=== PATIENT | female | born 1985 | race African-American/Black ===

== ENCOUNTER 2016-12-10 13:09 | Emergency (ER) | payer SELFPAY ==
[~2016-12-10] VITALS: Ht 170.2 cm; Wt 98.5 kg
[2016-12-10 13:29] VITALS: Ht 170.2 cm; Wt 98.5 kg
[2016-12-10] MEDS ORDERED: SOD CHLORIDE 0.9% 1,000 ML IV STA (14:03)
[2016-12-10] MEDS ORDERED: METOCLOPRAMIDE 10 MG INJ IV ONE (14:30)
[2016-12-10 14:36] LABS: ADD UMIC YES; URINE BILIRUBIN (Dip) NEGATIVE (NEGATIVE); URINE BLOOD (Dip) NEGATIVE (NEGATIVE); URINE COLOR LT. YELLOW (YELLOW); URINE GLUCOSE (Dip) NEGATIVE (NEGATIVE); URINE KETONES (Dip) NEGATIVE (NEGATIVE); URINE LEUKOCYTE ESTERASE (Dip) NEGATIVE (NEGATIVE); URINE NITRITE (Dip) NEGATIVE (NEGATIVE); URINE TOTAL PROTEIN (Dip) TRACE (NEGATIVE); URINE UROBILINOGEN (Dip) 1.0 E.U./dL (0.1-1.0)
[2016-12-10 14:54] LABS: BACTERIA,URINE FEW; MUCUS,URINE FEW; URINE RBCS NONE SEEN /HPF (0)
[2016-12-10 15:07] LABS: ADD SCAN DIFF NO
[2016-12-10 15:11] LABS: BASOPHILS % 0.2 % (0.0-2.0); EOSINOPHILS # 0.2 10^3/ul (0.0-0.5); EOSINOPHILS % 3.2 % (0.0-7.0); HEMATOCRIT 38.2 % (37.0-47.0); HEMOGLOBIN 12.7 g/dl (12.0-16.0); LYMPHOCYTES # 1.5 10^3/ul (0.8-2.9); LYMPHOCYTES % 30.9 % (15.0-51.0); MEAN CORPUSCULAR HEMOGLOBIN 29.3 pg (29.0-33.0); MEAN CORPUSCULAR HGB CONC 33.2 g/dl (32.0-37.0); MEAN PLATELET VOLUME 9.5 fl (7.4-10.4); MONOCYTE # 0.3 10^3/ul (0.3-0.9); MONOCYTES % 6.8 % (0.0-11.0); NEUTROPHIL # 2.9 10^3/ul (1.6-7.5); NEUTROPHILS % 58.7 % (39.0-77.0); PLATELET COUNT 340 10^3/UL (140-415); RED BLOOD COUNT 4.34 10^6/ul (4.20-5.40); RED CELL DISTRIBUTION WIDTH 11.7 % (11.5-14.5)
--- NOTE | 2016-12-10 15:48 | RADRPT ---
PROCEDURE: US OB. CLINICAL INDICATION: Vaginal bleeding TECHNIQUE: Transabdominal and transvaginal views of the pelvis are available for review. COMPARISON: No prior studies are available for comparison. FINDINGS: There is a twin intrauterine gestation with the crown-rump length measuring 0.7 and 0.5 cm, correspo nding to a gestational age of 6 weeks and 2-3 days. The heart rate is noted at 116 and 118 bpm. The ovaries are normal in size and echogenicity. Normal Doppler flow is identified in both ovaries. The right ovary measures 2.7 x 1.6 cm. The left ovary measures 3.2 x 1.8 cm. There is a complex left ovarian cyst measuring 1.2 cm. There is no free fluid. RPTAT: AA IMPRESSION: Twin live intrauterine with an estimated gestational age of 6 weeks and 2-3 days, based on ultrasound measurements. .Nicholas Pelletier MD, MD Date Time Electronically viewed and signed by .Nicholas Pelletier MD, on 12/10/2016 15:48 .S/
--- NOTE | 2016-12-10 17:57 | ERD ---
ER Documentation Chief Complaint Date/Time DATE: 12/10/16 TIME: 17:55 Chief Complaint vomiting and vag spotting x 3 days HPI 31-year-old female patient who is a G2 3 presents to the ED complaining of vaginal spotting and vomiting in the last 3 days. States that she has had 6 episodes of nonbilious nonbloody vomiting. States that she has a prescription for zofran for her nausea and vomiting prescribed by her NON PROFIT DIRECTOR. Reports that her NON PROFIT DIRECTOR is Milagros Fernandes in [place] and is here in [place] to visit her son. Reports that she only has vaginal spotting when she wipes. Denies any fever, chills, abdominal pain, diarrhea, constipation, vaginal discharge, chest pain, shortness of breath. Reports that her last menses was sometime in the beginning of October and the last week of September but is unsure of the exact date. States that she is currently taking amoxicillin for her sinusitis. ROS All systems reviewed and are negative except as per history of present illness. PMhx/Soc History of Surgery: No Anesthesia Reaction: No Hx Neurological Disorder: No Hx Respiratory Disorders: No Hx Cardiac Disorders: No Hx Psychiatric Problems: No Hx Miscellaneous Medical Probl: No Hx Alcohol Use: No Hx Substance Use: No Hx Tobacco Use: No Physical Exam Vitals Vital Signs Date Time Temp Pulse Resp B/P Pulse Ox O2 Delivery O2 Flow Rate FiO2 12/10/16 13:29 99.5 84 18 123/68 100 Physical Exam Const: Jal-mld-[id number], well-nourished. In no acute distress. Head: Atraumatic, normocephalic Eyes: Normal Conjunctiva without injection. No purulent discharge. ENT: Normal external ear, nose. Moist oropharynx without tonsillar exudates. Non -erythematous pharynx. Uvula midline. No drooling. No trismus. Neck: No cervical midline tenderness. Full range of motion. No meningismus. No cervical lymphadenopathy. No JVD. Resp: Clear to auscultation bilaterally. No wheezing, rhonchi, rales, or crackles. No accessory muscle use. No retractions. Cardio: Regular rate and rhythm. No murmurs, rubs or gallops. Abd: Soft, nontender, non distended. Normal bowel sounds. No palpable masses. No rebound tenderness. No guarding. Negative McBurney's point. Negative psoas sign. Negative obturator sign. Skin: No petechiae or rashes Back: No midline tenderness. No CVA tenderness. Ext: No cyanosis, or edema. Neur: Awake and alert. Normal gait. Normal coordination. Psych: Normal Mood and Affect Result Diagram: 12/10/16 1420 Results 24 hrs Laboratory Tests Test 12/10/16 14:13 12/10/16 14:20 Urine Color LT. YELLOW Urine Clarity CLEAR Urine pH 8.0 Urine Specific [place] 1.015 Urine Ketones NEGATIVE Urine Nitrite NEGATIVE Urine Bilirubin NEGATIVE Urine Urobilinogen 1.0 E.U./dL Urine Leukocyte Esterase NEGATIVE Urine Microscopic RBC NONE SEEN/HPF Urine Microscopic WBC 2-5/HPF Urine Epithelial Cells FEW Urine Bacteria FEW Urine Mucus FEW Urine Hemoglobin NEGATIVE Urine Glucose NEGATIVE% Urine Total Protein TRACE White Blood Count 5.010^3/ul Red Blood Count 4.3410^6/ul Hemoglobin 12.7g/dl Hematocrit 38.2% Mean Corpuscular Volume 88.0fl Mean Corpuscular Hemoglobin 29.3pg Mean Corpuscular Hemoglobin Concent 33.2g/dl Red Cell Distribution Width 11.7% Platelet Count 68734^3/UL Mean Platelet Volume 9.5fl Neutrophils % 58.7% Lymphocytes % 30.9% Monocytes % 6.8% Eosinophils % 3.2% Basophils % 0.2% Nucleated Red Blood Cells % 0.0/100WBC Neutrophils # 2.910^3/ul Lymphocytes # 1.510^3/ul Monocytes # 0.310^3/ul Eosinophils # 0.210^3/ul Basophils # 0.010^3/ul Nucleated Red Blood Cells # 0.010^3/ul Beta HCG, Quantitative 13148.0mIU/ml Current Medications Medications (Trade) Dose Ordered Sig/Linda Route PRN Reason Start Time Stop Time Status Last Admin Dose Admin Sodium Chloride (NS) 1,000 ml @ 1,000 mls/hr Q1H STAT IV 12/10/16 14:03 12/10/16 15:02 DC 12/10/16 14:26 Metoclopramide HCl (Reglan) 10 mg ONCE ONCE IV 12/10/16 14:30 12/10/16 14:31 DC 12/10/16 14:25 Procedures/MDM This is a 31-year-old female patient who is a A1 presents the ED complaining of vomiting and vaginal spotting. Patient is afebrile and nontoxic- appearing. An ultrasound, beta-hCG, CBC, type and RH, UA was ordered to evaluate patient. CBC: No evidence of severe infection or anemia Urine: No elevation in nitrites, leukocyte esterase, hematuria. No evidence of UTI Rh: O positive No indication for Rhogam at this time. beta Hc,214 PROCEDURE: US OB. CLINICAL INDICATION: Vaginal bleeding TECHNIQUE: Transabdominal and transvaginal views of the pelvis are available for review. COMPARISON: No prior studies are available for comparison. FINDINGS: There is a twin intrauterine gestation with the crown-rump length measuring 0.7 and 0.5 cm, corresponding to a gestational age of 6 weeks and 2-3 days. The heart rate is noted at 116 and 118 bpm. The ovaries are normal in size and echogenicity. Normal Doppler flow is identified in both ovaries. The right ovary measures 2.7 x 1.6 cm. The left ovary measures 3.2 x 1.8 cm. There is a complex left ovarian cyst measuring 1.2 cm. There is no free fluid. RPTAT: AA IMPRESSION: Twin live intrauterine with an estimated gestational age of 6 weeks and 2-3 days, based on ultrasound measurements. Patient's bleeding symptoms have stabilized while in the department. Patient has twin live intrauterine , 6 weeks 2-3 days noted on ultrasound. Low suspicion for dehydration, symptomatic anemia, ectopic , sepsis, PID, appendicitis, ovarian torsion, tubo-ovarian abscess, surgical abdomen, or other emergent conditions. Patient was educated that there is a risk for threatened . Patient to follow up with NON PROFIT DIRECTOR in 2 days for further evaluation and treatment. Patient is to return sooner to the ED for any worsening symptoms. Patient's questions were answered. Patient understood and agreed with discharge plan. Departure Diagnosis: Primary Impression: Vaginal spotting Additional Impression: Hyperemesis arising during Condition: Stable Patient Instructions: Hyperemesis Gravidarum, Possible Miscarriage (Threatened ) Referrals: [facility] YOU HAVE RECEIVED A MEDICAL SCREENING EXAM AND THE RESULTS INDICATE THAT YOU DO NOT HAVE A CONDITION THAT REQUIRES URGENT TREATMENT IN THE EMERGENCY DEPARTMENT. FURTHER EVALUATION AND TREATMENT OF YOUR CONDITION CAN WAIT UNTIL YOU ARE SEEN IN YOUR DOCTORS OFFICE WITHIN THE NEXT 1-2 DAYS. IT IS YOUR RESPONSIBILITY TO MAKE AN APPOINTMENT FOR FOLOW-UP CARE. IF YOU HAVE A PRIMARY DOCTOR --you should call your primary doctor and schedule an appointment IF YOU DO NOT HAVE A PRIMARY DOCTOR YOU CAN CALL OUR PHYSICIAN REFERRAL HOTLINE AT IF YOU CAN NOT AFFORD TO SEE A PHYSICIAN YOU CAN CHOSE FROM THE FOLLOWING [facility] CL[facility]ICS [facility] [address] [facility] [address] [facility] [address] [facility] [address] [facility] [address] [facility]. [facility]. [address] [facility]. [facility] YOU HAVE RECEIVED A MEDICAL SCREENING EXAM AND THE RESULTS INDICATE THAT YOU DO NOT HAVE A CONDITION THAT REQUIRES URGENT TREATMENT IN THE EMERGENCY DEPARTMENT. FURTHER EVALUATION AND TREATMENT OF YOUR CONDITION CAN WAIT UNTIL YOU ARE SEEN IN YOUR DOCTORS OFFICE WITHIN THE NEXT 1-2 DAYS. IT IS YOUR RESPONSIBILITY TO MAKE AN APPOINTMENT FOR FOLOW-UP CARE. IF YOU HAVE A PRIMARY DOCTOR --you should call your primary doctor and schedule and appointment IF YOU DO NOT HAVE A PRIMARY DOCTOR YOU CAN CALL OUR PHYSICIAN REFERRAL HOTLINE AT . IF YOU CAN NOT AFFORD TO SEE A PHYSICIAN YOU CAN CHOSE FROM THE FOLLOWING [facility]: [facility] [address] [place] [address] [facility] [address] [place] [address] [facility] [address] [place] [address] NON PROFIT DIRECT[place] [address] [facility] [address] [place] [address] OFFICE FAX PAT [address] [place] [address] [address] [place] [address] [place] [address] [address] [facility] [address] [facility] [address] [address], [facility] [address] [place] [address] [facility] [address] [place] [address] [address] [facility] [address] - [address], [address], [facility] [address] [address] MARTINEZ, RICHARD [address] [facility]. [address], [facility] [address] [address], [facility] [address] [place], [place] [id number] [facility] Hours: 8:00 am - 5:00 pm Additional Instructions: Call your NON PROFIT DIRECTOR TOMORROW for an appointment during the next 2-3 days. See the doctor sooner or return here if your condition worsens before your appointment time. JAMISON BYRNE PA-C Dec 10, 2016 17:57
== END 2016-12-10 17:14 | disposition home or self-care (01) ==
LOC: FTE 13:09 → EDBD 13:09 → FTE 17:14
DX: O26.851 Spotting complicating pregnancy, first trimester (principal); Z3A.01 Less than 8 weeks gestation of pregnancy
CPT/HCPCS: 76801; 76817; 81001; 84702; 85025; 86900; 86901; J2765; J7030; 36415; 81003; 96361; 96374